=== PATIENT | female | born 1965 | race Caucasian/White ===

== ENCOUNTER 2023-12-24 12:54 | Emergency (ER) | payer BC ==
[~2023-12-24] VITALS: Ht 160 cm; Wt 77.8 kg
[2023-12-24] MEDS: LIDOcaine 1% 30ml preserv. free vial IJ ONE (15:14)
[2023-12-24] MEDS: TETanus/Pertussis (Acell)/Diphther VAC/PF (Tdap-Adult) 0.5ml syringe IMVAC ONE (15:14)
[2023-12-24] MEDS ORDERED: AMOX-580 PO (16:35)
[2023-12-24] MEDS: amox tr/potassium clavulanate 875/125mg TAB PO ONE (17:07)
[2023-12-24 17:09] VITALS: BP 110/64; PULSE 70; RESP 14; TEMP 98.2; O2SAT 99
== END 2023-12-24 17:12 | disposition home or self-care (01) ==
LOC: ER 12:55
DX: S61.255A Open bite of left ring finger without damage to nail, initial encounter (principal); E78.00 Pure hypercholesterolemia, unspecified; I10 Essential (primary) hypertension; E03.9 Hypothyroidism, unspecified; Z88.1 Allergy status to other antibiotic agents; W55.01XA Bitten by cat, initial encounter; Y93.89 Activity, other specified; Y92.89 Other specified places as the place of occurrence of the external cause; Y99.8 Other external cause status
CPT/HCPCS: 12001; 90471; 90715; 99283; A6407; J2003; J7030; A6410